=== PATIENT | male | born 1970 | race African-American/Black ===

== ENCOUNTER 2019-06-28 12:29 | Inpatient (IN) | payer OTHER ==
[~2019-06-28] VITALS: Ht 188 cm; Wt 127.0 kg
[2019-06-28] VITALS (8 sets, daily range): BP systolic 111–132; BP diastolic 71–76
[2019-06-28] MEDS ORDERED: IV NS 0.9% 1,000 ML BAG IV ONE (13:00)
[2019-06-28] MEDS ORDERED: GELATIN SPONGE,ABSORBABLE 1 SPONGE SPONGE TP ONE ×2 (13:02→13:05)
--- NOTE | 2019-06-28 13:03 | NUR ---
BIB [facility] C/O BLEEDING DIABETIC FOOT ULCER, pt awake alert, -sob, nad noted. placed on monitor, vss, pending er provider eval
[2019-06-28 13:15] LABS: BASOPHILS # (AUTO) 0.1 /CMM (0.0-0.2); BASOPHILS % (AUTO) 1.1 % (0.0-2.0); EOSINOPHILS % (AUTO) 3.2 % (0.0-6.0); LYMPHOCYTES # (AUTO) 1.6 /CMM (0.8-4.8); LYMPHOCYTES % (AUTO) 24.9 % (20.0-44.0); MEAN CORPUSCULAR HGB CONC 32 g/dl (31.0-36.0); MEAN CORPUSCULAR VOLUME 84 fL (80-96); MONOCYTES # (AUTO) 0.6 /CMM (0.1-1.30); MONOCYTES % (AUTO) 9.4 % (2.0-12.0); NEUTROPHILS % (AUTO) 61.4 % (43.0-81.0); PLATELET COUNT (AUTO) 434 /CMM (150-450); WHITE BLOOD COUNT (AUTO) 6.6 K/uL (4.3-11.0)
[2019-06-28 13:17] LABS: HEMOGLOBIN 6.4 g/dL (13.5-17.5)
[2019-06-28 13:18] LABS: HEMATOCRIT 20 % (39-51)
[2019-06-28 13:22] LABS: CALCIUM, SERUM 7.5 mg/dL (8.5-10.1); CREATININE 0.6 mg/dL (0.6-1.3); POTASSIUM 3.3 mmol/L (3.5-5.1)
--- NOTE | 2019-06-28 14:00 | NUR ---
GAVE MOVESHEET TO ADMITTING TO AUTH INSURANCE
[2019-06-28] MEDS ORDERED: METO25TA3 PO (14:10)
[2019-06-28] MEDS ORDERED: FOLI0.4T2 PO (14:10)
[2019-06-28] MEDS ORDERED: ACET-868 PO (14:10)
[2019-06-28] MEDS ORDERED: NAPR-1009 PO (14:10)
[2019-06-28] MEDS ORDERED: PANT40TA2 PO (14:10)
[2019-06-28] MEDS ORDERED: GUAI5SYR4 PO (14:10)
[2019-06-28] MEDS ORDERED: ATOR40TA PO (14:10)
[2019-06-28] MEDS ORDERED: L.AC460C PO (14:10)
[2019-06-28] MEDS ORDERED: CLON0.1T PO (14:10)
[2019-06-28] MEDS ORDERED: HYDR-4384 PO (14:10)
[2019-06-28] MEDS ORDERED: APIX5TAB PO (14:10)
[2019-06-28] MEDS ORDERED: BISA5TAB10 PO (14:10)
[2019-06-28] MEDS ORDERED: GLUC1KIT SQ (14:10)
[2019-06-28] MEDS ORDERED: BACL20TA PO (14:10)
[2019-06-28] MEDS ORDERED: GABA-534 PO (14:10)
[2019-06-28] MEDS ORDERED: INSU100V39 SQ (14:10)
[2019-06-28] MEDS ORDERED: TAMS-12 PO (14:10)
[2019-06-28] MEDS ORDERED: MELA3TAB41 PO (14:10)
[2019-06-28] MEDS ORDERED: CEFT1FRO2 IV (14:18)
[2019-06-28] MEDS ORDERED: VANC1.5P20 IV (14:31)
--- NOTE | 2019-06-28 14:39 | NUR ---
CALLED [facility], PAGED HEIDY PETERSON
--- NOTE | 2019-06-28 14:54 | NUR ---
[facility], DX ANEMIA, FOOT ULCER, [facility] ACCEPTING
[2019-06-28] MEDS ORDERED: ACETAMINOPHEN 325 MG TABLET PO PRN (15:00)
[2019-06-28] MEDS ORDERED: ONDANSETRON HCL/PF 4 MG/2 ML VIAL IVP PRN (15:00)
[2019-06-28] MEDS ORDERED: DEXTROSE 50%-WATER 50 ML DISP.SYRIN IV PRN (15:00)
--- NOTE | 2019-06-28 15:35 | NUR ---
rn notes patient received patient from ER at this time
--- NOTE | 2019-06-28 15:36 | NUR ---
report given to dionne trujillo for abhijit pt transported to 2nd floor
--- NOTE | 2019-06-28 15:50 | NUR ---
rn notes Patient had bowel movement removed from him. About 6 handful of bowel movement removed.
[2019-06-28 16:00] LABS: EOSINOPHILS % (MANUAL) 2 % (0-4); LYMPHOCYTES % (MANUAL) 21 % (16-48); MONOCYTES % (MANUAL) 5 % (0-11.0); NEUTROPHILS % (MANUAL) 71 (42-76); REACTIVE LYMPHOCYTES 1 % (0-0)
[2019-06-28] MEDS ORDERED: POTASSIUM CHLORIDE 20 MEQ TAB.PRT.SR PO ONE (16:00)
[2019-06-28] MEDS: BLOOD SUGAR DIAGNOSTIC 1 EACH STRIP IN SCH ×2 (17:16→22:00)
--- NOTE | 2019-06-28 17:43 | NUR ---
rn notes patient refuses blood sugar check x3. Explained the benefits of the procedure and still refused.
--- NOTE | 2019-06-28 18:10 | NUR ---
rn notes Patient states he only wants chicken. No red meat, or vegetables. Patient was offered fruits with cottage cheese and refused. Kitchen states that they do not have chicken and patient is on reduced salt diet.
--- NOTE | 2019-06-28 19:30 | NUR ---
MS RN OPENING NOTE RECEIVED PATIENT IN BED. A/OX4. TOLERATING ROOM AIR. RESPIRATIONS ARE EVEN AND UNLABORED. NO S/S SOB NOTED. DENIES PAIN AT THIS TIME. IN NO APPARENT DISTRESS. IV ACCESS IN WENDY PICC RUNNING 1 UNIT PRBC @90ML/HR. SULLIVAN CATHETER IS PRESENT, DRAINING TO GRAVITY. BED IS LOW AND LOCKED, HOB ELEVATED IN SEMI FOWLERS, SIDE RIALS UP X3, BED ALARM ON. CALL LIGHT WITHIN REACH. WILL CONTINUE TO MONITOR.
--- NOTE | 2019-06-28 20:30 | NUR ---
MS RN NOTE BLOOD TRANSFUSION COMPLETED. NO ADVERSE REACTIONS NOTED.
--- NOTE | 2019-06-28 21:10 | NUR ---
MS RN NOTE NOTIFIED MD THAT THE PATIENT IS IN PAIN AND DOES NOT WANT TO TAKE PRN MEDICATION; TYLENOL 650MG Q6 PRN NOR NORO5/325 AND IS REQUESTING NAPROXEN. MD DID NOT GIVE ANY ORDER AND STATED PATIENT SHOULD NOT BE TAKING NAPROXEN D/T DX OF ANEMIA. ALSO STATED SHE CAN CHANGE ORDER FOR TYLENOL 650MG ORDER TO Q4HR. INFORMED PATIENT AND HE STILL REFUSED NORCO AND TYLENOL. MD AWARE, NO NEW ORDERS, WILL CONTINUE TO MONITOR.
[2019-06-28] MEDS: IV NS 0.9% 1,000 ML IV PRN (21:21)
[2019-06-28] MEDS ORDERED: ZOLPIDEM TARTRATE 5 MG TABLET PO PRN (22:00)
[2019-06-28] MEDS: ATORVASTATIN 40 MG TABLET PO SCH (22:20)
[2019-06-28] MEDS: TAMSULOSIN 0.4 MG CAP.SR.24H PO SCH (22:20)
[2019-06-28] MEDS: GABAPENTIN 300 MG CAPSULE PO SCH (22:20)
--- NOTE | 2019-06-28 22:24 | NUR ---
MS RN NOTES PATIENT REFUSED SCHEDULED 2200 ACCU CHECK. EXPLAINED RISKS AND BENEFITS. CONTINUED TO REFUSE. WILL CONTINUE TO MONITOR.
[2019-06-29] VITALS (10 sets, daily range): BP systolic 127–154; BP diastolic 84–105
[2019-06-29 06:49] LABS: BASOPHILS # (AUTO) 0.1 /CMM (0.0-0.2); BASOPHILS % (AUTO) 1.3 % (0.0-2.0); EOSINOPHILS % (AUTO) 2.7 % (0.0-6.0); LYMPHOCYTES # (AUTO) 1.3 /CMM (0.8-4.8); LYMPHOCYTES % (AUTO) 17.8 % (20.0-44.0); MEAN CORPUSCULAR HGB CONC 33 g/dl (31.0-36.0); MEAN CORPUSCULAR VOLUME 83 fL (80-96); MONOCYTES # (AUTO) 0.8 /CMM (0.1-1.30); MONOCYTES % (AUTO) 10.2 % (2.0-12.0); NEUTROPHILS # (AUTO) 5.1 /CMM (1.8-8.9); PLATELET COUNT (AUTO) 382 /CMM (150-450); RED BLOOD CELL COUNT(AUTO) 2.24 MIL/uL (4.5-6.0); WHITE BLOOD COUNT (AUTO) 7.5 K/uL (4.3-11.0)
[2019-06-29 06:57] LABS: CALCIUM, SERUM 7.7 mg/dL (8.5-10.1); CREATININE 0.5 mg/dL (0.6-1.3); MAGNESIUM 1.4 mg/dL (1.8-2.4); PHOSPHORUS 3.6 mg/dL (2.5-4.9); POTASSIUM 3.6 mmol/L (3.5-5.1)
--- NOTE | 2019-06-29 07:00 | NUR ---
MS RN CLOSING NOTE PATIENT IN BED. A/OX4. TOLERATING ROOM AIR. RESPIRATIONS ARE EVEN AND UNLABORED. NO SOB NOTED. C/O PAIN BUT REFUSED PAIN MEDICATIONS MD PRESCRIBED. NO DISTRESS NOTED. IV ACCESS MAINTAINED IN [facility] PICC RUNNING NS @75ML/HR. SULLIVAN CATHETER IS MAINTAINED, DRAINING TO GRAVITY, URINE OUTPUT 550. BED IS LOW AND LOCKED, HOB ELEVATED IN SEMI FOWLERS, SIDE RIALS UP X3, BED ALARM ON. CALL LIGHT WITHIN REACH. WILL ENDORSE TO DAY SHIFT.
[2019-06-29 07:09] LABS: HEMATOCRIT 19 % (39-51); HEMOGLOBIN 6.1 g/dL (13.5-17.5)
--- NOTE | 2019-06-29 07:10 | NUR ---
MS RN INITIAL NOTES Clinical trial Report received at bedside. Patient received in bed, awake, alert and oriented x4, verbally responsive. Safety measures in place. Will continue to monitor and assess patient.
--- NOTE | 2019-06-29 07:11 | NUR ---
MS RN NOTE RECEIVED CRITICAL LAB FROM DONA FOR HEMOGLOBIN. 6.1. AND HEMATOCRIT 19. READ BACK, NOTED, WILL NOTIFY MD AND NEXT SHIFT RN.
--- NOTE | 2019-06-29 07:15 | NUR ---
MS RAMIRES INITIAL NOTES Clinical trial Report received at bedside. Patient received in bed, awake, alert and oriented x4, verbally responsive. Safety measures in place. Will continue to monitor and assess patient. Addendum: 06/29/19 at 0742 by ADAM DINH RN INCORRECT PATIENT
--- NOTE | 2019-06-29 07:15 | NUR ---
MS RN INITIAL NOTES Report received at bedside. Patient received in bed, awake, alert and oriented x4, verbally responsive. IV access in place: patent and intact with IVF running - pt tolerating well. Safety measures in place. Will continue to monitor and assess patient.
--- NOTE | 2019-06-29 07:25 | NUR ---
MS RAMIRES INITIAL NOTES Report received at bedside. Patient received in bed, awake, alert and oriented x4, verbally responsive. IV access in place: patent and intact. Safety measures in place. Will continue to monitor and assess patient. Addendum: 06/29/19 at 0741 by ADAM DINH RN INCORRECT PATIENT
--- NOTE | 2019-06-29 07:28 | NUR ---
MS RN NOTE ACCUCHECK 0730 BLOOD SUGAR CHECKED 163. REFUSED INSULIN COVERAGE. EXPLAINED RISKS AND BENEFITS, CONTINUES TO REFUSE.
[2019-06-29] MEDS: BLOOD SUGAR DIAGNOSTIC 1 EACH STRIP IN SCH ×4 (07:30→21:13)
--- NOTE | 2019-06-29 07:42 | NUR ---
MS RN REFUSAL NOTES Patient refused to have BLOOD SUGAR taken. Explained risks vs benefits but continues to refuse. Also refused to have breakfast. Per patient, "it is NOT what I wanted!" Patient also verbalized that he would like to be discharged [facility]. Explained risks vs benefits especially with low hgb, patient still persistent to be discharged today. Will relay message to
[2019-06-29 08:34] LABS: EOSINOPHILS % (MANUAL) 1 % (0-4); LYMPHOCYTES % (MANUAL) 18 % (16-48); MONOCYTES % (MANUAL) 9 % (0-11.0); NEUTROPHILS % (MANUAL) 72 (42-76)
[2019-06-29] MEDS: IV NS 0.9% 1,000 ML IV PRN (08:34)
[2019-06-29] MEDS: PANTOPRAZOLE 40 MG TABLET.DR PO SCH (08:37)
--- NOTE | 2019-06-29 08:47 | NUR ---
WOUND CARE CONSULT: PT PRESENTS WITH WOUNDS TO RT FOOT, HEEL AND RT LATERAL LOWER LEG, PRESENT ON ADMISSION. LEFT BELOW KNEE AMPUTATION STUMP NOTED. PT HAS KCI FREEDOM VAC TO SACRUM BUT REFUSED ASSESSMENT. FREEDOM VAC HAS FIELD TALENT QUALIFICATION SPECIALIST PLUGGED INTO WALL OUTLET AND IS FUNCTIONING AT 125mmHg WITH MODERATE AMOUNT OF SEROSANGUINOUS DRAINAGE IN CANISTER. PT REFUSED TO TURN FOR FULL SKIN ASSESSMENT. RECOMMEND DPM AND SURGICAL CONSULTS. DR TALLEY AND DR PATEL NOTIFIED OF CONSULT REQUESTS. FIRST STEP LOW AIRLOSS MATTRESS ORDERED. CURRENT KEILA SCORE IS 12. SULLIVAN CATH NOTED. PT IS ANGRY AND UNCOOPERATIVE AT TIMES. WILL SEE PRN. IN AGREEMENT WITH PLAN OF CARE. Addendum: 06/29/19 at 0850 by RAQUEL MENDEZ WNDNU Amended: Links added.
[2019-06-29] MEDS ORDERED: Z GUARD REMEDY 2 OZ OINT TP PRN (09:00)
[2019-06-29] MEDS: METOPROLOL SUCCINATE 25 MG TAB.SR.24H PO SCH (09:30)
[2019-06-29] MEDS: Z GUARD REMEDY 2 OZ OINT TP SCH (09:30)
[2019-06-29] MEDS: GABAPENTIN 300 MG CAPSULE PO SCH ×2 (09:30→21:12)
--- NOTE | 2019-06-29 09:30 | NUR ---
MS RN REFUSAL NOTES Patient refused to have vitals signs taken by me and/or by LAUNDRY HELPER. Unable to administer BP medications w/o BP assessment. Also, patient refused to take gabapentin and demanded to leave medications on table and will be taken later. Clarified with patient that we CANNOT leave medication/unwitnessed adminstration. Patient became furious and stated that he has NEVER heard of that "dumb excuse" before. Explained risks vs benefits but patient continues to refuse.
[2019-06-29] MEDS: Magnesium 1GM/D5W 100ML PREMIX 100 ML IV SCH ×4 (10:21→20:07)
--- NOTE | 2019-06-29 10:30 | NUR ---
MS RN REFUSAL NOTES Informed patient that vitals need to be taken PRIOR to blood transfusion. Patient agreed to have transfusion BUT did not answer regarding allowing to obtain vitals. Will continue to attempt to obtain V/S as soon as blood is picked up. Will orange picker machine operator blood as soon as 1 bag of magnesium is transfused.
--- NOTE | 2019-06-29 11:31 | NUR ---
MS RN - BLOOD TRANSFUSION NOTES Pre-vital 143/99 99 98.5 18 100% Awake, alert and oriented x4, verbally responsive. Not in any type of distress noted. No SOB/labored breathing noted. Will continue to monitor and assess patient at bedside. Reinforced teachings and risks of adverse effects - patient verbalized understanding. 1 unit of PRBC checked/assessed at bedside along with another RN: Giovanny Duff
--- NOTE | 2019-06-29 11:46 | NUR ---
MS RAMIRES - BLOOD TRANSFUSION NOTES 15 minute v/s: 141/97 105 98.5 20 100% room air No rash/back pain/hot flush/reaction noted or reported. Patient remains A&Ox4, verbally responsive. No SOB/labored breathing noted. Will continue to monitor and assess patient. At bedside. Addendum: 06/29/19 at 1215 by ADAM DINH RN 1201pm 30 minute V/S: 154/89 103 20 98.3 100% room air No complaints of any reaction to blood transfusion. Will continue to monitor and assess patient. Cloth Doubling Machine Operator at bedside. Consent obtained for RLE debridement - signed by patient and physician. Debridement and dressing change being done currently. Addendum: 06/29/19 at 1231 by ADAM DINH RN 1231 1hr post-transfusion VS: 140/86 107 20 98.2 100% room air
--- NOTE | 2019-06-29 12:43 | NUR ---
MS RN NOTES Ms. Gaines at bedside. Labs recheck after blood transfusion.
--- NOTE | 2019-06-29 15:15 | NUR ---
MS RN - BLOOD TRANSFUSION NOTES Transfusion completed. 1 PRBC of 328cc has been transfused with no adverse reaction noted or reported. Patient remained awake, alert & oriented x4, verbally responsive with no complaints of any pain/rash/chills/hot flush. Vitals signs obtained. Will continue to monitor and assess patient.
[2019-06-29 16:40] LABS: BASOPHILS # (AUTO) 0.1 /CMM (0.0-0.2); BASOPHILS % (AUTO) 1.5 % (0.0-2.0); EOSINOPHILS % (AUTO) 4.2 % (0.0-6.0); HEMATOCRIT 21 % (39-51); LYMPHOCYTES # (AUTO) 1.6 /CMM (0.8-4.8); LYMPHOCYTES % (AUTO) 21.9 % (20.0-44.0); MEAN CORPUSCULAR HGB CONC 33 g/dl (31.0-36.0); MEAN CORPUSCULAR VOLUME 83 fL (80-96); MONOCYTES # (AUTO) 0.8 /CMM (0.1-1.30); MONOCYTES % (AUTO) 10.7 % (2.0-12.0); NEUTROPHILS # (AUTO) 4.4 /CMM (1.8-8.9); NEUTROPHILS % (AUTO) 61.7 % (43.0-81.0); PLATELET COUNT (AUTO) 374 /CMM (150-450); RED BLOOD CELL COUNT(AUTO) 2.55 MIL/uL (4.5-6.0); WHITE BLOOD COUNT (AUTO) 7.2 K/uL (4.3-11.0)
--- NOTE | 2019-06-29 17:11 | NUR ---
MS RN REFUSAL NOTES Notified patient of the special mattress for his sacral wound vac. Patient refused mattress. Explained risks vs benefits x3 but patient continues to refuse. Patient expects to be discharged tomorrow and believes that nothing will happen overnight if special mattress is not in place. Explained that there's no confirmation of discharge tomorrow and it makes a lot of difference to have special mattress for patient with sacral wound on diabetic patients. Patient continues to refuse. Will endorse to oncoming shift nurse and will attempt to convince patient
--- NOTE | 2019-06-29 18:35 | NUR ---
MS IKE CLOSING NOTES Patient remained in bed, awake, well, verbally responsive. Alert and oriented x4 with epsiodes of confusion with care providers. Patient had episodes of care refusal with accucheck, wound tx/special mattress, turn/reposition and meds. Have episodes of aggressive and sarcastic behavior at certain staff. No SOB/labored breathing noted or reported. Not in any type of distress. Provided assistance needed. Patient agreed to continue with foot care plan and treatment and blood transfusion. No discharge order/plan as of this moment. Another order of 1PRBC to adminster ordered by Ms. Gaines. Sacral wound-vac remains in place. Wound dressing and treatment done x3. Safety measures in place. Bed in lowest position with bed alarm on and call light within reach. Will continue to monitor and assess patient. Will endorse to oncruddy shift nurse. Addendum: 06/29/19 at 1939 by ADAM DINH RN Endorsed to IKE
--- NOTE | 2019-06-29 19:15 | NUR ---
MS RAMIRES - WOUND VAC NOTES Wound-vac alarmed with notification that canister is full or tubing is kinked. Assessed tubing - not kinked. Patient refused to switched to our wound-vac. Notified charge nurse. Called [facility] ([facility] [phone]) to deliver supplies for personal wound-vac. Will endorse to chica zelaya nurse Addendum: 06/29/19 at 1938 by ADAM DINH RN Endorsed to IKE
--- NOTE | 2019-06-29 19:25 | NUR ---
RN OPEN NOTES RECEIVED PATIENT AWAKE IN BED. A/OX4. NO SIGNS OF DISTRESS OR DISCOMFORT. BREATHING EVEN AND UNLABORED. HAS WENDY PICC WITH NS INFUSING, PATENT AND INTACT, NO SIGNS OF REDNESS OR INFILTRATION. HAS F/C INTACT, DRAINING CLEAR ROLANDO FLUID. DRESSING ON RLE C/D.I. HAS WOUND VAC TO SACRUM INTACT, REFUSING TO HAVE VAC OR WOUND PROPERLY ASSESSED. BED IN LOW LOCKED POSITION WITH SIDE RAILS X2. CALL LIGHT WITHIN REACH. WILL CONTINUE TO MONITOR.
--- NOTE | 2019-06-29 19:38 | NUR ---
MS RN - BLOOD TRANSFUSION NOTES Called Lab and spoke with Jerry to get an update with blood unit availability. Order will get processed lester. Endorsed to RN
--- NOTE | 2019-06-29 20:00 | NUR ---
RN NOTES PATIENT REFUSED VITALS X3. STATES HE WILL ONLY HAVE THEM DONE WHILE RECEIVING BLOOD TRANSFUSION. RISK AND BENEFITS EXPLAINED. PATIENT VERBALIZED UNDERSTANDING. WILL CONTINUE TO MONITOR.
--- NOTE | 2019-06-29 20:13 | NUR ---
PT REFUSED DUPLEX VENOUS AND ARTERIAL OF RIGHT LOWER EXTREMITY AND WANTS THE EXAM DONE TOMORROW.
[2019-06-29] MEDS: ATORVASTATIN 40 MG TABLET PO SCH (21:12)
[2019-06-29] MEDS: TAMSULOSIN 0.4 MG CAP.SR.24H PO SCH (21:12)
--- NOTE | 2019-06-29 22:00 | NUR ---
RN NOTES PATIENT REFUSED TO HAVE ACCU-CHECK DONE X3. RISK AND BENEFITS EXPLAINED. PATIENT VERBALIZED UNDERSTANDING. WILL CONTINUE TO MONITOR.
[2019-06-30] VITALS (8 sets, daily range): BP systolic 101–145; BP diastolic 62–89
[2019-06-30 06:29] LABS: CALCIUM, SERUM 7.7 mg/dL (8.5-10.1); CREATININE 0.5 mg/dL (0.6-1.3); MAGNESIUM 1.7 mg/dL (1.8-2.4); POTASSIUM 3.5 mmol/L (3.5-5.1)
[2019-06-30 06:58] LABS: BASOPHILS # (AUTO) 0.1 /CMM (0.0-0.2); BASOPHILS % (AUTO) 1.3 % (0.0-2.0); EOSINOPHILS % (AUTO) 4.5 % (0.0-6.0); HEMATOCRIT 24 % (39-51); HEMOGLOBIN 7.8 g/dL (13.5-17.5); LYMPHOCYTES # (AUTO) 1.2 /CMM (0.8-4.8); LYMPHOCYTES % (AUTO) 15.8 % (20.0-44.0); MEAN CORPUSCULAR HGB CONC 32 g/dl (31.0-36.0); MEAN CORPUSCULAR VOLUME 85 fL (80-96); MONOCYTES # (AUTO) 0.7 /CMM (0.1-1.30); NEUTROPHILS % (AUTO) 68.4 % (43.0-81.0); PLATELET COUNT (AUTO) 354 /CMM (150-450); RED BLOOD CELL COUNT(AUTO) 2.88 MIL/uL (4.5-6.0); WHITE BLOOD COUNT (AUTO) 7.3 K/uL (4.3-11.0)
--- NOTE | 2019-06-30 07:09 | NUR ---
RN CLOSING NOTES PATIENT RESTING IN BED, EASILY AROUSABLE. A/OX4. NO SIGNS OF DISTRESS OR DISCOMFORT. BREATHING EVEN AND UNLABORED. HAS WENDY PICC WITH NS INFUSING, PATENT AND INTACT, NO SIGNS OF REDNESS OR INFILTRATION. HAS F/C INTACT, DRAINING CLEAR ROLANDO FLUID. DRESSING ON RLE C/D.I. HAS WOUND VAC TO SACRUM INTACT, STILL REFUSING TO HAVE VAC OR WOUND PROPERLY ASSESSED. THROUGHOUT SHIFT PATIENT REFUSED TO HAVE ACCU-CHECK, WOUND TX AND TURN AND REPOSITIONING Q2H, RISK AND BENEFITS WERE THOROUGHLY EXPLAINED AND PATIENT VERBALIZED UNDERSTANDING. NO SIGNIFICANT CHANGES THROUGH THE NIGHT. BED IN LOW LOCKED POSITION WITH SIDE RAILS X2. CALL LIGHT WITHIN REACH. WILL ENDORSE TO AM SHIFT FOR JAME.
[2019-06-30] MEDS: BLOOD SUGAR DIAGNOSTIC 1 EACH STRIP IN SCH ×4 (07:30→21:42)
--- NOTE | 2019-06-30 08:00 | NUR ---
MS RN OPENING NOTES Received Patient awake and resting in bed. A/O x 4. VS stable with no acute distress. Breathing even and unlabored on room air with no respiratory distress. Patient stated generalized pain on a scale of 7-8/10. Will intervene as ordered. Warner Cath in place and patent. WENDY PICC line clean, intact, patent and flushing well. Patient refusing IVF at this time. Explained risks and benefits. Patient still refused. Removed wound vac and rendered wound care on sacrum with wound care nurse present. Patient tolerated well. Will continue to monitor. Safety precautions in place. Bed locked and set to lowest position with side rails x 2 up. All needs rendered at this time. Call light within reach. Will continue to monitor.
--- NOTE | 2019-06-30 08:43 | NUR ---
WOUND CARE CONSULT: PT SEEN FOR SACRAL STAGE 4 ULCER, PRESENT ON ADMISSION. PT HAS HIS OWN PORTABLE FREEDOM KCI VAC WHICH MALFUNCTIONED AND WAS REMOVED. 100cc RED DRAINAGE IN CANISTER. RECOMMENDATIONS MADE FOR SKIN PROTECTION AND WOUND CARE. DISCUSSED WITH NURSING STAFF AND MSG LEFT FOR SURGICAL Brandon LERMA. PT REFUSED LOW AIR LOSS MATTRESS EVEN AFTER BENEFITS EXPLAINED. WILL SEE PRN. ALBA IN AGREEMENT WITH PLAN OF CARE. Addendum: 06/30/19 at 0846 by RAQUEL MENDEZ WNDNU Amended: Links added.
[2019-06-30] MEDS ORDERED: SILVER SULFADIAZINE 50 GM JAR TP SCH (09:00)
[2019-06-30] MEDS: PANTOPRAZOLE 40 MG TABLET.DR PO SCH (09:31)
[2019-06-30] MEDS: GABAPENTIN 300 MG CAPSULE PO SCH ×2 (09:31→21:33)
[2019-06-30] MEDS: METOPROLOL SUCCINATE 25 MG TAB.SR.24H PO SCH (09:38)
[2019-06-30] MEDS: INSULIN REGULAR, HUMAN 100 UNIT/ML 3 ML VIAL SQ PRN (09:42)
[2019-06-30] MEDS: Z GUARD REMEDY 2 OZ OINT TP SCH (09:47)
[2019-06-30] MEDS: HYDROCODONE/APAP 5/325MG 1 EACH TABLET PO PRN ×2 (09:55→14:25)
[2019-06-30] MEDS: DAKINS QUARTER STRENGTH (0.125%) 480 ML BOTTLE TOP SCH (09:56)
[2019-06-30] MEDS: Magnesium 1GM/D5W 100ML PREMIX 100 ML IV SCH ×2 (12:30→14:07)
[2019-06-30] MEDS ORDERED: SILVER NITRATE APPLICATOR 1 EA BOX TP ONE (13:30)
[2019-06-30] MEDS ORDERED: SILVER SULFADIAZINE CREAM 25 GM TUBE TP SCH (13:30)
[2019-06-30] MEDS ORDERED: CELLULOSE,OXIDIZED 1 EA PACK MC ONE (13:30)
[2019-06-30 16:56] LABS: HEMOGLOBIN 6.8 g/dL (13.5-17.5)
--- NOTE | 2019-06-30 19:18 | NUR ---
MS RN CLOSING NOTES Patient awake and resting in bed. A/O x 4. VS stable with no acute distress. Breathing even and unlabored on room air with no respiratory distress. Denies pain. No signs and symptoms of pain. Warner Cath in place and patent. WENDY PICC line clean, intact, patent and flushing well. Safety precautions in place. Bed locked and set to lowest position with side rails x 2 up. All needs rendered at this time. Call light within reach. Will endorse plan of care to oncoming shift.
--- NOTE | 2019-06-30 19:22 | NUR ---
RN OPEN NOTES RECEIVED PATIENT AWAKE IN BED. A/OX4. NO SIGNS OF DISTRESS OR DISCOMFORT. BREATHING EVEN AND UNLABORED. HAS WENDY PICC, PATENT AND INTACT, NO SIGNS OF REDNESS OR INFILTRATION. HAS F/C INTACT, DRAINING CLEAR ROLANDO FLUID. DRESSING ON RLE C/D/I. BED IN LOW LOCKED POSITION WITH SIDE RAILS X2. CALL LIGHT WITHIN REACH. WILL CONTINUE TO MONITOR.
[2019-06-30] MEDS: ATORVASTATIN 40 MG TABLET PO SCH (21:33)
[2019-06-30] MEDS: TAMSULOSIN 0.4 MG CAP.SR.24H PO SCH (21:33)
[2019-07-01 00:15] VITALS: BP 114/63
[2019-07-01] MEDS: HYDROCODONE/APAP 5/325MG 1 EACH TABLET PO PRN (05:31)
[2019-07-01 06:28] LABS: BASOPHILS # (AUTO) 0.1 /CMM (0.0-0.2); BASOPHILS % (AUTO) 1.2 % (0.0-2.0); EOSINOPHILS % (AUTO) 3.5 % (0.0-6.0); HEMATOCRIT 23 % (39-51); HEMOGLOBIN 7.5 g/dL (13.5-17.5); LYMPHOCYTES # (AUTO) 1.4 /CMM (0.8-4.8); LYMPHOCYTES % (AUTO) 16.2 % (20.0-44.0); MEAN CORPUSCULAR HGB CONC 33 g/dl (31.0-36.0); MEAN CORPUSCULAR VOLUME 84 fL (80-96); MONOCYTES # (AUTO) 0.9 /CMM (0.1-1.30); MONOCYTES % (AUTO) 10.5 % (2.0-12.0); NEUTROPHILS % (AUTO) 68.6 % (43.0-81.0); PLATELET COUNT (AUTO) 401 /CMM (150-450); RED BLOOD CELL COUNT(AUTO) 2.68 MIL/uL (4.5-6.0); WHITE BLOOD COUNT (AUTO) 8.8 K/uL (4.3-11.0)
[2019-07-01 06:43] LABS: CALCIUM, SERUM 7.5 mg/dL (8.5-10.1); CREATININE 0.7 mg/dL (0.6-1.3); MAGNESIUM 1.7 mg/dL (1.8-2.4); POTASSIUM 3.7 mmol/L (3.5-5.1)
--- NOTE | 2019-07-01 07:26 | NUR ---
RN CLOSING NOTES PATIENT AWAKE IN BED. A/OX4. NO SIGNS OF DISTRESS OR DISCOMFORT. BREATHING EVEN AND UNLABORED. HAS WENDY PICC, PATENT AND INTACT, NO SIGNS OF REDNESS OR INFILTRATION. HAS F/C INTACT, DRAINING CLEAR ROLANDO FLUID. DRESSING ON RLE C/D/I. PATIENT ON KCI MATTRESS. WOUND CARE TX DONE. ALL NEEDS MET. NO SIGNIFICANT CHANGES THROUGH THE NIGHT. PATIENT KEPT CLEAN DRY AND COMFORTABLE. BED IN LOW LOCKED POSITION WITH SIDE RAILS X2. CALL LIGHT WITHIN REACH. ENDORSED TO AM SHIFT FOR JAME.
--- NOTE | 2019-07-01 07:30 | NUR ---
RN OPENING NOTE PT WAS RECEIVED IN BED AT LOWEST AND LOCKED POSITION WITH SIDE RAILS UPX2, A/O X4 BREATHING EVEN AND UNLABORED ON RA WITH NO S/S OF ANY DISTRESS OR PAIN AT THIS TIME, WENDY PICC IS PATENT AND INTACT, SULLIVAN IN PLACE AND DRAINING, NOTED TO HAVE A SACRAL AND RIGHT FOOT WOUND WITH DRESSING JUST CHANGED ON THE SACRUM, INFORMED BY NIGHT RN THAT REFUSES WOUND CARE AT TIMES AND THAT HE ALSO REFUSES INSULIN. PT STATING THAT HE WANTS TO GO HOME. SAFETY PRECAUTIONS IN PLACE, CALL LIGHT IN REACH, WILL MONITOR ACCORDINGLY.
[2019-07-01] MEDS: INSULIN REGULAR, HUMAN 100 UNIT/ML 3 ML VIAL SQ PRN (07:35)
[2019-07-01] MEDS: BLOOD SUGAR DIAGNOSTIC 1 EACH STRIP IN SCH ×3 (07:35→16:41)
[2019-07-01] MEDS: PANTOPRAZOLE 40 MG TABLET.DR PO SCH (08:26)
[2019-07-01] MEDS: GABAPENTIN 300 MG CAPSULE PO SCH (08:26)
[2019-07-01] MEDS: Z GUARD REMEDY 2 OZ OINT TP SCH (08:27)
[2019-07-01] MEDS: DAKINS QUARTER STRENGTH (0.125%) 480 ML BOTTLE TOP SCH (08:27)
[2019-07-01] MEDS: METOPROLOL SUCCINATE 25 MG TAB.SR.24H PO SCH (08:27)
--- NOTE | 2019-07-01 08:30 | NUR ---
RN NOTE 0900 METOPROLOL NOT GIVEN DUE TO PT REFUSING AM VITAL SIGNS, WILL CONTINUE TO MONITOR ACCORDINGLY
[2019-07-01] MEDS: Magnesium 1GM/D5W 100ML PREMIX 100 ML IV SCH ×2 (09:46→11:06)
--- NOTE | 2019-07-01 10:40 | NUR ---
RN NOTE PHOTOS TAKEN OF PT RIGHT FOOT BUT HE REFUSED FOR PHOTOS OF HIS SACRUM AND THE REST OF HIS BODY. INFORMED AND EDUCATED ABOUT PURPOSE OF PHOTO DOCUMENTATION.
--- NOTE | 2019-07-01 12:21 | NUR ---
RN NOTE PT REFUSED 1200 ACCUCHECK AT THIS TIME, INFORMED AND EDUCATED ABOUT ACCUCHECK PURPOSE
--- NOTE | 2019-07-01 12:49 | NUR ---
RN NOTE PT STATED THAT HE WILL NOT SIGN DISCHARGE UNLESS HE OBTAINS A LETTER OF ADMITTANCE. RF MICROWAVE ENGINEER NICK PROVIDED LETTER AND HE WAS SHOWN LETTER OF ADMITTANCE FROM RF MICROWAVE ENGINEER BUT HE REFUSES TO SIGN ANY DISCHARGE PAPERWORK UNLESS IT HAS NO DISCHARGE DATE. RF MICROWAVE ENGINEER NICK MADE AWARE, AND STATED SHE WILL GET TO IT LATER ONCE SHE IS DONE WITH OTHER MATTERS. PT STATED HE WILL NOT SIGN ANY PAPERWORK UNTIL HE GETS THE LETTER OF ADMITTANCE WITH NO DISCHARGE DATE.
--- NOTE | 2019-07-01 13:14 | NUR ---
RN NOTE SENIOR PHYSICIAN NICK SPOKE TO PT AT THIS TIME, AND HE IS NOW AGREEABLE TO SIGN DISCHARGE PAPERWORK.
--- NOTE | 2019-07-01 15:39 | NUR ---
RN NOTE PT REFUSED VITAL SIGNS AT THIS TIME, INFORMED AND EDUCATED ABOUT THEIR IMPORTANCE
--- NOTE | 2019-07-01 16:41 | NUR ---
RN NOTE PT REFUSED 1730 ACCUCHECK AT THIS TIME, INFORMED AND EDUCATED ABOUT ACCUCHECK PURPOSE
--- NOTE | 2019-07-01 17:36 | NUR ---
RN NOTE REPORT GIVEN TO KARLENE NOVA AT [facility] AT THIS TIME
--- NOTE | 2019-07-01 18:48 | NUR ---
RN CLOSING NOTE PT IN BED AT LOWEST AND LOCKED POSITION WITH SIDE RAILS UPX2, A/O X4 BREATHING EVEN AND UNLABORED ON RA WITH NO S/S OF ANY DISTRESS OR PAIN AT THIS TIME, WENDY PICC IS PATENT AND INTACT, SULLIVAN IN PLACE AND DRAINING, PHOTO OF RIGHT FOOT TAKEN BUT REFUSED PHOTOS OF SACRUM AND THE REST OF THE BODY, SAFETY PRECAUTIONS IN PLACE, PLAN FOR DISCHARGE AT 730PM, CALL LIGHT IN REACH, ALL NEEDS ATTENDED TO, WILL ENDORSE TO NIGHT RN FOR JAME.
--- NOTE | 2019-07-01 19:20 | NUR ---
RN OPEN NOTES RECEIVED PATIENT AWAKE IN BED. A/OX4. NO SIGNS OF DISTRESS OR DISCOMFORT. BREATHING EVEN AND UNLABORED. HAS WENDY PICC, PATENT AND INTACT, NO SIGNS OF REDNESS OR INFILTRATION. HAS F/C INTACT, DRAINING CLEAR ROLANDO FLUID. DRESSING ON RLE C/D/I. PATIENT AWAITING DISCHARGE BACK TO BOARD AND CARE. BED IN LOW LOCKED POSITION WITH SIDE RAILS X2. CALL LIGHT WITHIN REACH. WILL CONTINUE TO MONITOR.
[2019-07-01 19:50] VITALS: BP 145/106
--- NOTE | 2019-07-01 19:50 | NUR ---
SENIOR PREMIUM AUDITOR NOTES PATIENT DISCHARGED TO [facility] IN STABLE CONDITION VIA EMT. A/OX4. NO SIGNS OF DISTRESS OR DISCOMFORT. BREATHING EVEN AND UNLABORED. HAS WENDY PICC, PATENT AND INTACT NO SIGNS OF REDNESS OR INFILTRATION. HAS F/C INTACT, DRAINING CLEAR ROLANDO FLUID. DRESSING ON RLE C/D/I. PATIENT VERBALIZE UNDERSTANDING OF DISCHARGE INSTRUCTIONS AND EDUCATION. ALL BELONGINGS WITH PATIENT. RLE PHOTO TAKEN PATIENT REFUSED OTHER WOUND DOCUMENTATION PHOTOS.
== END 2019-07-01 19:50 | DRG 380 ==
LOC: ER 12:30 → MEDSG2 15:11
PROVIDERS: ADMIT Nurse Practitioner Acute Care; ATTEND Nurse Practitioner Acute Care
PROC: 0JBN0ZZ Excision of Right Lower Leg Subcutaneous Tissue and Fascia, Open Approach (ICD-10-PCS; principal; 2019-06-29)
PROC: 30233N1 Transfusion of Nonautologous Red Blood Cells into Peripheral Vein, Percutaneous Approach (ICD-10-PCS; principal; 2019-06-29)
DX: E11.621 Type 2 diabetes mellitus with foot ulcer (principal); L89.154 Pressure ulcer of sacral region, stage 4; G82.50 Quadriplegia, unspecified; E11.40 Type 2 diabetes mellitus with diabetic neuropathy, unspecified; D68.69 Other thrombophilia; D62 Acute posthemorrhagic anemia; E66.01 Morbid (severe) obesity due to excess calories; L97.419 Non-pressure chronic ulcer of right heel and midfoot with unspecified severity; L97.519 Non-pressure chronic ulcer of other part of right foot with unspecified severity; K92.2 Gastrointestinal hemorrhage, unspecified; Z89.512 Acquired absence of left leg below knee; E78.5 Hyperlipidemia, unspecified; D63.8 Anemia in other chronic diseases classified elsewhere; E11.69 Type 2 diabetes mellitus with other specified complication; I10 Essential (primary) hypertension; Z79.01 Long term (current) use of anticoagulants; N40.0 Benign prostatic hyperplasia without lower urinary tract symptoms; E87.6 Hypokalemia; Z74.01 Bed confinement status
CPT/HCPCS: 36415; 80048-TC; 80061-TC; 82962-TC; 83735-TC; 84100-TC; 85025-TC; 85027-TC; 85385-TC; 85610-TC; 85730-TC; 86850-TC; 86921-TC; 87081-TC; 93926-TC; 93971-TC; A6253; A6403; G0378; J1815; J3475; J7030; J7040; J7050; J7060; P9016-BL